=== PATIENT | female | born 1975 | race Hispanic/Latino ===

== ENCOUNTER 2020-07-22 18:53 | Observation (INO) | payer BC, SELFPAY ==
--- NOTE | ~2020-07-22 | US_ITS ---
US venous doppler [facility] DATE: 07/23/2020 10:09 INDICATION: Calf pain TECHNIQUE: Real-time and color flow imaging and Doppler analysis of the veins of the left lower extre mity COMPARISON: None FINDINGS: The left greater saphenous vein is patent. There is spontaneous and phasic flow and normal augmentation and color flow signal and normal compression of the deep veins of the left leg. IMPRESSION: No evidence of deep venous thrombosis of left lower extremity Reviewed, dictated and finalized at [facility]. Reviewed, dictated and finalized at location [facility].
--- NOTE | ~2020-07-22 | XR_ITS ---
EXAMINATION: XR chest 1V portable DATE: 07/22/2020 19:40 INDICATION: Cough TECHNIQUE: frontal view of the chest was obtained. COMPARISON: None FINDINGS: Subtle patchy opacities in the right mid to lower and left lower lung zone. No pleural effusion or pn eumothorax. The cardiomediastinal silhouette is normal. IMPRESSION: 1. Subtle opacities in the right mid to lower and left lower lung zones which could represent atelect asis, pneumonia or pulmonary edema. Reviewed, dictated and finalized at location [facility]. IMPRESSION: 1. Subtle opacities in the right mid to lower and left lower lung zones which c ould represent atelectasis, pneumonia or pulmonary edema.
[2020-07-22 18:56] VITALS: BP 135/67; PULSE 76; RESP 20; TEMP 36.8; O2SAT 97
--- NOTE | 2020-07-22 19:25 | ECG_ITS ---
Measurements Intervals [place] Rate: 73 P: 35 OR: 153 QRS: -7 QRSD: 101 T: 22 QT: 419 QTc: 463 Interpretive Statements SINUS RHYTHM BASELINE ARTIFACT- I NORMAL ECG Electronically Signed On 07-23-2020 7:18:42 CDT by Hawk Worley D.O.
--- NOTE | 2020-07-22 19:30 | ED.SOB ---
HPI - SOB/Dyspnea General Chief Complaint: Shortness of Breath/Dyspnea Stated Complaint: SOB/left leg pain Time Seen by Provider: 07/22/20 19:13 Source: RN notes reviewed History of Present Illness HPI Narrative: Patient presents to emergency department from home for dyspnea. Patient states that symptoms began today with a feeling of shortness of breath. States is associated with a nonproductive cough. Patient also states today she developed pain in her left calf she denies any swelling in the left leg she denies any fevers or chills chest pain abdominal pain nausea vomiting, loss of taste or smell or any other symptoms denies tobacco use. Patient denies any neck direct trauma or injury to the left leg. Denies any history of blood clots Related Data Home Medications Medication Instructions Recorded Confirmed methocarbamol 07/22/20 Allergies Allergy/AdvReac Type Severity Reaction Status Date / Time steroid Allergy Hives Uncoded 07/22/20 18:59 Review of Systems Review of Systems: Narrative: Gen.: Denies fevers or chills Eyes: Denies eye pain or visual change ENT: Denies congestion Respiratory: See HPI CV: Denies chest pain or palpitations GI: Denies abdominal pain nausea, emesis or diarrhea Musculoskeletal: Denies back pain reports left calf pain Neuro: Denies numbness, tingling, weakness or focal weakness Skin: Denies rash Except as documented, all other systems reviewed and negative [facility] Past Medical History Medical History (Updated 07/22/20 @ 21:22 by Kyle Garcia DO) Patient denies significant medical history Social History Social History (Updated 07/22/20 @ 19:31 by Kyle Garcia DO) Smoking status: Never smoker Gender identity (if verbalized by the patient): Female Exam Narrative: Exam Narrative: APPEARANCE: No acute distress, nontoxic, resting in bed EYES: EOMI HEENT: Normocephalic, atraumatic, OMM RESPIRATORY: No respiratory distress Clear to auscultation bilaterally with no rhonchi wheezing or rales. CARDIOVASCULAR: Regular rate and rhythm without murmurs rubs or gallops. ABDOMINAL: Soft, nontender, nondistended, no rebound or guarding MUSCULOSKELETAl: Moves all extremities. No clubbing, cyanosis or edema. Left calf is tender to palpation no swelling noted no tenderness of the left knee or ankle with full range of motion of both, dorsalis pedis pulse 2+ neurovascular intact NEURO: Awake and alert. Following commands, speech normal, no focal deficits SKIN:: Warm, dry. No rashes lesions or abrasions PSYCHIATRIC: Normal affect/mood, Course Course Emergency Course: I discussed with the patient her current blood level. She states she has been anemic before in the past she states she believes she normally runs around hemoglobin of 3 states she is never had a full work-up but has required blood transfusions I discussed need for admission with blood transfusion. Discussed with patient I would like to perform a rectal exam to rule out occult GI bleed the patient refusing at this time with charge nurse Reyes present Called discussed with Dr. Hargrove presentation work-up agrees with mission at this time. Request COVID-19 swab as well as patient be started on antibiotics until results of test are returned. We discussed that her left calf pain will order a.m. ultrasound Discussed with patient and family results of workup and diagnosis. Discussed need for admission. Patient and family understand and agree to current treatment plan Vital Signs Vital signs: Vital Signs Temperature 98.2 F 07/22/20 18:56 Pulse Rate 76 07/22/20 18:56 Respiratory Rate 20 07/22/20 18:56 Blood Pressure 135/67 07/22/20 18:56 Pulse Oximetry 97 07/22/20 18:56 Temperature 98.2 F 07/22/20 18:56 Pulse Rate 78 07/22/20 19:38 Respiratory Rate 8 L 07/22/20 19:37 Blood Pressure 130/90 07/22/20 19:37 Pulse Oximetry 98 07/22/20 19:37 MDM - SOB/Dyspnea Lab Data Result diagrams: 05
[2020-07-22 19:37] VITALS: BP 130/90; PULSE 70; RESP 8; O2SAT 98
[2020-07-22 19:38] VITALS: PULSE 78
[2020-07-22 19:54] LABS: Eosinophils Percent Auto 0.5 % (0-4.4); Hematocrit 24.8 % (37.0-47.0); Immature Platelet Fraction Pct 3.2 % (0.9-11.2); Lymphocytes Absolute Auto 1.39 K/mm3 (0.9-3.2); Lymphocytes Percent Auto 32.4 % (18.3-44.2); Mean Corpuscular Hemoglobin 14.3 pg (26-34); Mean Corpuscular Volume 57.3 fl (80-100); Mean Platelet Volume 9.1 fl (7.4-10.4); Monocytes Absolute Auto 0.5 K/mm3 (0.1-0.6); Neutrophils Absolute Auto 2.4 K/mm3 (1.3-6.7); Neutrophils Percent Auto 56.1 % (45.5-73.1); Platelet Count Result 276 k/mm3 (150-375); Red Blood Count 4.33 M/mm3 (4.2-5.4); Red Cell Distribution Width 21.5 % (11.5-14.5); White Blood Count 4.3 K/mm3 (4.5-10.0)
[2020-07-22 20:01] LABS: Hemoglobin 6.2 g/dL (12.0-15.0)
[2020-07-22 20:03] LABS: Alanine Aminotransferase 13 U/L (4-35); Albumin Level 4.2 g/dL (3.5-5.1); Alkaline Phosphatase 81 U/L (38-126); Anion Gap 6 mmol/L (8-16); Aspartate Amino Transferase 24 U/L (14-36); Bilirubin,Total 0.3 mg/dL (0.2-1.3); Blood Urea Nitrogen 10 mg/dL (7-17); Calcium 8.5 mg/dL (8.4-10.2); Carbon Dioxide 28 mmol/L (22-30); Chloride 105 mmol/L (98-107); Estimated Glomerular Filt Rate > 60; Glucose 86 mg/dL (65-105); Partial Thromboplastin Time 37.1 SECONDS (22.3-36.8); Sodium 139 mmol/L (137-145)
[2020-07-22 20:03] LABS: Hypochromasia 1+ (NORMAL); Ovalocytes 1+ (NORMAL); Platelet Estimate Adequate (Adequate); Target Cells 1+ (NORMAL)
[2020-07-22 20:14] LABS: NT Pro B Type Natriuretic Pept 219 pg/mL (5-100); Troponin I < 0.012 ng/mL (0.000-0.034)
[2020-07-22 20:17] LABS: Prothrombin Time 13.8 Seconds (11.1-14.7)
[2020-07-22 20:19] LABS: Potassium 3.2 mmol/L (3.4-5.0)
[2020-07-22 21:21] LABS: Iron 15 ug/dL (37-170)
[2020-07-22] MEDS: POTASSIUM CHLORIDE 20 MEQ TABLET 40 MEQ PO (21:26)
[2020-07-22 21:30] LABS: Percent Iron Saturation 3 % (20-50)
[2020-07-22 21:57] LABS: Ferritin 4.04 ng/mL (6.24-137)
[2020-07-22 22:22] VITALS: BP 141/78; PULSE 69; RESP 17; O2SAT 100
[2020-07-22 22:30] VITALS: BP 128/73; PULSE 70; RESP 20; TEMP 37.6; O2SAT 100; BMI 35.4
--- NOTE | 2020-07-22 22:44 | ADMGEN ---
This patient, Joan Perdomo, was admitted to 3 [facility] Surg Room 314-01. Patient/family oriented to hospital policies and general routines including ID bracelet, bed and alarms, visiting hours, pain management, procedures, bathroom and other care routines, personal items, smoking policy, room service/diet, and visiting hours. Information on how to activate the Rapid Response Team has been discussed. Patient/Family are encouraged to report perceived risks to care and to ask questions if they do not understand what they are told or what they should do.
[2020-07-23] VITALS (14 sets, daily range): BP systolic 113–149; BP diastolic 59–82; PULSE 52–98; RESP 16–20; TEMP 36.3–37.9; O2SAT 97–100
--- NOTE | 2020-07-23 | PM.IMHP ---
H&P: HPI History of Present Illness Date/Time: 07/23/20 01:00 Chief Complaint: Shortness of breath, cough, left leg pain Narrative: 44-year-old female with past medical history of gastric bypass procedure and anemia requiring prior blood transfusion in 2019 who presented to the ER with shortness of breath, nonproductive cough and left leg pain. In the ER the patient had a chest x-ray that demonstrated subtle bilateral lower lobe infiltrates. Her labs also demonstrated incidental finding of anemia with hemoglobin of 6.2. She also reported some anterior left cooper pain that started occurring today without accompanying swelling. She reports 1 day of nonproductive cough that is accompanied by difficulty catching her breath. Incidentally she also has been having some dyspnea on exertion over the last several months. She thought that this was due to her being out of shape. She has not had her labs checked in quite some time. She reports that she recently moved here from [facility]. She has had a history of prior blood transfusions per only blood transfusion was in 2018 or 2019 following her panniculectomy. She room reports that she usually tries to eat iron rich foods but has not been eating is balanced diet is she usually does. She does not take oral iron supplementation as she states that her bariatric surgeon told her to never take oral iron supplements. She is supposed to be taking a bariatric multivitamin (likely with iron) but she has not been taking her vitamin supplements recently. She is also supposed to be taking vitamin-D supplements and vitamin-C daily. She denies any hematochezia or melena. She has refused a rectal exam. She really denies ever having an EGD. She does not have symptoms of heartburn. She only rarely takes ibuprofen. She has never had a colonoscopy. She states that she has noticed over recent months that she has been having palpitations and dyspnea when climbing stairs. She denies any orthopnea. She has occasional trace lower extremity edema but is unchanged from baseline. 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 She denies any known ill contacts or COVID exposures. She denies any fevers or chills. However, just prior to her blood transfusion when she arrived on the floor she had a temperature of 100?. She denies any myalgias, loss of sense of taste or smell, nasal congestion, rhinorrhea, or odynophagia. She did notice of frontal headache earlier today that is since resolved. She reports chronic left flank/rib pain ever since she had her panniculectomy. She uses topical lidocaine and Skelaxin to treat this. She has not had a change in her pain. She used to snore quite significantly but has not done so since she had her gastric bypass. She was post have a sleep study prior to her gastric bypass procedure but never completed the polysomnogram. She used to have hypertension prior to her bypass procedure but this has since resolved. She also had pre diabetes but this has resolved. When nursing staff arrived to the patient's room the patient's had somehow made it past security and was sitting in the patient's room despite the patient being tested for COVID-19 and the hospitals visitor restriction policy. Review of Systems Review of Systems: Narrative: 12 systems were reviewed with pertinent positives and negatives per HPI. Except as documented in the HPI, all other systems were reviewed and are negative. [facility] Past Medical History Medical History (Updated 07/23/20 @ 07:33 by Belkis Hargrove DO) Anemia Surgical History Surgical History (Updated 07/23/20 @ 07:40 by Belkis Hargrove DO) History of 2 sections History of gastric bypass (~2017) Patient is highest weight was 405 lb. She lost 150 lb prior to her gastric bypass procedure. She still had the procedure in 2017 her pre operative weight was 279 lb her current weight is around 165 lb History of tubal liga
[2020-07-23] MEDS: SODIUM CHLORIDE 0.9% IV 250 ML 30 ML IV CONT (00:45)
[2020-07-23] MEDS: ACETAMINOPHEN 325 MG TABLET 650 MG PO (02:16)
[2020-07-23] MEDS: IRON SUCROSE COMPLEX 500 MG in SODIUM CHLORIDE 0.9% IV 250 ML 78.57 MG IVPB (03:29)
[2020-07-23 06:00] LABS: Basophils Percent Auto 0.2 % (0.2-1.2); Eosinophils Percent Auto 0.4 % (0-4.4); Hematocrit 26.7 % (37.0-47.0); Hemoglobin 7.3 g/dL (12.0-15.0); Immature Granulocyte Absolute 0.01 K/mm3 (0.00-0.031); Immature Granulocyte Percent A 0.2 % (0-0.5); Immature Platelet Fraction Pct 3.7 % (0.9-11.2); Lymphocytes Absolute Auto 1.76 K/mm3 (0.9-3.2); Lymphocytes Percent Auto 36.7 % (18.3-44.2); Mean Corpuscular HGB Conc 27.3 g/dl (32-36); Mean Corpuscular Hemoglobin 16.3 pg (26-34); Mean Corpuscular Volume 59.5 fl (80-100); Mean Platelet Volume 9.2 fl (7.4-10.4); Monocytes Absolute Auto 0.5 K/mm3 (0.1-0.6); Monocytes Percent Auto 11.3 % (2.6-8.5); Neutrophils Absolute Auto 2.5 K/mm3 (1.3-6.7); Neutrophils Percent Auto 51.2 % (45.5-73.1); Platelet Count Result 224 k/mm3 (150-375); Red Blood Count 4.49 M/mm3 (4.2-5.4); Red Cell Distribution Width 25.8 % (11.5-14.5); White Blood Count 4.8 K/mm3 (4.5-10.0)
[2020-07-23 06:11] LABS: Alanine Aminotransferase 12 U/L (4-35); Albumin Level 3.5 g/dL (3.5-5.1); Alkaline Phosphatase 71 U/L (38-126); Anion Gap 6 mmol/L (8-16); Aspartate Amino Transferase 23 U/L (14-36); Bilirubin,Total 0.6 mg/dL (0.2-1.3); Blood Urea Nitrogen 9 mg/dL (7-17); Carbon Dioxide 26 mmol/L (22-30); Chloride 107 mmol/L (98-107); Estimated Glomerular Filt Rate > 60; Glucose 75 mg/dL (65-105); Potassium 3.5 mmol/L (3.4-5.0); Sodium 139 mmol/L (137-145)
[2020-07-23 06:53] LABS: Hypochromasia 2+ (NORMAL); Platelet Estimate Adequate (Adequate)
[2020-07-23 06:54] LABS: Anisocytosis 2+ (NORMAL); Ovalocytes 2+ (NORMAL); Target Cells 1+ (NORMAL)
[2020-07-23] MEDS: MULTIVIT/MIN/PREN/FOL AC/IRON TABLET 1 TAB PO (08:49)
--- NOTE | 2020-07-23 10:01 | PM.IMPN ---
Progress Note: A&P Assessment and Plan (1) Iron deficiency anemia: Code(s): D50.9 - Iron deficiency anemia, unspecified <Jeanette Hewitt PA-C - Last Filed: 07/23/20 10:19> Status: Acute <Jeanette Ester JARED Hewitt - Last Filed: 07/23/20 10:19> Assessment and Plan: Patient appears to be iron deficient likely due to bariatric surgery without taking and give vitamin supplements -patient states she simply does not like taking pills and that is why she does not take it. She understands the importance of this -she denies any dark stool or heavy menstrual bleeding -await Ifob -patient will need iron supplementation and repeat CBC to ensure she is improving with oral iron. She may need infusions if she continues to be low. I will check a B12 as well -she has no further shortness of breath or dyspnea on exertion with unit of blood. I do not suspect other etiologies such as PE or heart failure at this time. <Jeanette Hewitt PA-C - Last Filed: 07/23/20 10:19> (2) Pneumonia: Qualifiers: Laterality: bilateral Lung location: lower lobe of lung Pneumonia type: due to unspecified organism Qualified Code(s): J18.9 - Pneumonia, unspecified organism <Jeanette Hewitt PA-C - Last Filed: 07/23/20 10:19> Code(s): J18.9 - Pneumonia, unspecified organism <Jeanette Hewitt PA-C - Last Filed: 07/23/20 10:19> Status: Acute <Jeanette Hewitt PA-C - Last Filed: 07/23/20 10:19> Assessment and Plan: Questionable pneumonia in the setting of significant anemia -the patient's cough has resolved -likely atelectasis but will continue antibiotics as she did have a fever of 100.3 today -COVID-19 pending -PE seems less likely; negative D-dimer, symptoms have resolved, and she is not hypoxic <Jeanette Hewitt PA-C - Last Filed: 07/23/20 10:19> (3) Suspected 2019-nCoV infection: Code(s): Z20.822 - Contact with and (suspected) exposure to COVID-19 <Jeanette Hewitt PA-C - Last Filed: 07/23/20 10:19> Status: Acute <Jeanette Hewitt PA-C - Last Filed: 07/23/20 10:19> Assessment and Plan: Await PCR <Jeanette Hewitt PA-C - Last Filed: 07/23/20 10:19> (4) Pain of left calf: Code(s): M79.662 - Pain in left lower leg <Jeanette Hewitt PA-C - Last Filed: 07/23/20 10:19> Status: Acute <Jeanette Hewitt PA-C - Last Filed: 07/23/20 10:19> Assessment and Plan: Appears muscular on exam -ultrasound has been ordered by the ER physician, will await results <Jeanette Hewitt PA-C - Last Filed: 07/23/20 10:19> Time Spent With Patient Time with patient: 25 - 35 minutes <Jeanette Hewitt PA-C - Last Filed: 07/23/20 10:19> Subjective Date/time seen: 07/23/20 10:01 <Jeanette Hewitt PA-C - Last Filed: 07/23/20 10:19> Interval history: Pt is a 44-year-old female here for shortness of breath found to be anemic as well as possible pneumonia. Patient states she is breathing much better today. Yesterday she could not take a deep breath without coughing but today she has no cough at all. She has been walking to the bathroom and back without any shortness of breath and has no lightheadedness or dizziness. For the last few months she has been feeling very tired and thought it was due to working overtime at [employer] since they are short staffed. She has had no CP with this. She does not have heavy periods or dark stool. She is feeling back to her baseline today. She has not had the covid vaccine and does not want to take it. She has had pain to her left lower anterior leg without any trauma or exercise to that area. <JARED Vargas Last Filed: 07/23/20 10:19> Review of Systems Review of Systems: All systems reviewed & are unremarkable except as noted in HPI and below <Jeanette Hewitt PA-C - Last Filed: 07/23/20 10:19> Exam Narrative: Exam Narrative: General: Wel
[2020-07-23 10:11] LABS: Hematocrit 27.4 % (37.0-47.0); Hemoglobin 7.3 g/dL (12.0-15.0)
[2020-07-23 21:08] LABS: IFOB Positive Control Positive; Immunochemical Fecal Occult Bl Negative (N)
--- NOTE | 2020-07-24 00:04 | PC.NURSE ---
MARLEN called me to let me know the patient was complaining of pain with her IV & zithromax infusion. When I got in there the patient was gripping her sheets saying she couldn't move her hand due to the pain. I assessed the IV site and she gasped and yelled about the pain.. I told her I would stop the infusion and take out the IV and offered her an ice pack which she took. I told her she only got half of her antibiotic due to me slowing down the rate and she said she does not want any more IVs because we don't know where to stick her ... at this time the patient is refusing the rest of her antibiotic as well as further IV placement. I will talk to AM nurse about switching her antibiotics to oral since we are planning on discharge anyway. -MARTHA WINTER
[2020-07-24 04:00] VITALS: BP 121/61; PULSE 60; RESP 16; TEMP 36.6; O2SAT 100
[2020-07-24 06:12] LABS: Hematocrit 27.8 % (37.0-47.0); Hemoglobin 7.2 g/dL (12.0-15.0); Mean Corpuscular HGB Conc 25.9 g/dl (32-36); Mean Corpuscular Hemoglobin 15.9 pg (26-34); Mean Corpuscular Volume 61.4 fl (80-100); Mean Platelet Volume 9.5 fl (7.4-10.4); Platelet Count Result 240 k/mm3 (150-375); Red Blood Count 4.53 M/mm3 (4.2-5.4); Red Cell Distribution Width 25.8 % (11.5-14.5); White Blood Count 4.8 K/mm3 (4.5-10.0)
[2020-07-24 06:18] LABS: Anion Gap 5 mmol/L (8-16); Blood Urea Nitrogen 10 mg/dL (7-17); Calcium 8.5 mg/dL (8.4-10.2); Carbon Dioxide 27 mmol/L (22-30); Chloride 107 mmol/L (98-107); Estimated Glomerular Filt Rate > 60; Glucose 73 mg/dL (65-105); Potassium 3.3 mmol/L (3.4-5.0); Sodium 139 mmol/L (137-145)
--- NOTE | 2020-07-24 06:36 | PC.NURSE ---
Informed Dr. Hargrove of patients refusal for IV's and antibiotics. -MARTHA RN
[2020-07-24 07:24] LABS: Folic Acid 8.8 ng/mL (2.76->20)
[2020-07-24 07:54] VITALS: BP 125/75; PULSE 61; RESP 16; TEMP 36.8; O2SAT 100
[2020-07-24] MEDS: MULTIVIT/MIN/PREN/FOL AC/IRON TABLET 1 TAB PO (08:14)
[2020-07-24] MEDS: CYANOCOBALAMIN INJ 1,000 MCG/ML VIAL 1000 MCG IM (08:14)
[2020-07-24] MEDS: POTASSIUM CHLORIDE 20 MEQ TABLET 40 MEQ PO (08:14)
[2020-07-24] MEDS: IRON SUCROSE COMPLEX 100 MG in SODIUM CHLORIDE 0.9% IV 50 ML 220 MG IVPB (10:59)
[2020-07-24 12:00] VITALS: BP 132/77; PULSE 60; RESP 16; TEMP 37.3; O2SAT 97
[2020-07-24 13:55] LABS: SARS-CoV-2 RNA PCR Positive
--- NOTE | 2020-07-24 14:20 | PM.DS ---
DS: Admitting Diagnosis Admitting Diagnosis Admitting Diagnosis: anemia DS: Discharge Diagnosis Discharge Diagnosis (1) Iron deficiency anemia: Code(s): D50.9 - Iron deficiency anemia, unspecified Status: Acute Assessment and Plan: Patient appears to be iron deficient likely due to bariatric surgery without taking and give vitamin supplements -patient states she simply does not like taking pills and that is why she does not take it. She understands the importance of this -she denies any dark stool or heavy menstrual bleeding -unable to produce a stool. -she was given iron and b12 at discharge and is to follow up with her bariatric surgeon -she has no further shortness of breath or dyspnea on exertion with unit of blood. I do not suspect other etiologies such as PE or heart failure at this time. (2) Pneumonia: Qualifiers: Pneumonia type: due to unspecified organism Laterality: bilateral Lung location: lower lobe of lung Qualified Code(s): J18.9 - Pneumonia, unspecified organism Code(s): J18.9 - Pneumonia, unspecified organism Status: Acute Assessment and Plan: due to covid, see below -PE seems less likely; negative D-dimer, symptoms have resolved, and she is not hypoxic (3) Suspected 2019-nCoV infection: Code(s): Z20.822 - Contact with and (suspected) exposure to COVID-19 Status: Acute Assessment and Plan: as below (4) Pain of left calf: Code(s): M79.662 - Pain in left lower leg Status: Acute Assessment and Plan: Appears muscular on exam -ultrasound neg for DVT (5) COVID-19 virus infection: Code(s): U07.1 - COVID-19 Status: Acute (6) Pneumonia due to COVID-19 virus: Code(s): U07.1 - COVID-19; J12.82 - Pneumonia due to coronavirus disease 2019 Status: Acute Assessment and Plan: Patient had a fever yesterday of 100.3 with an x-ray with bilateral infiltrates and a cough/shortness of breath on admission -her oxygen saturation is 97% on room air and is experiencing no further cough or SOB -She was told she had 8 days left of quarantine which initially she said she was not going to do but after further negotiation she agreed to do so -she did not want her information shared with the CDC or health department . I told her it was an automatic reportable illness to the health department and that they would likely be in touch with her. I ensured her that we would not tell any of her friends, family or employer but I explained how important quarantine is. Although she used foul language throughout our entire encounter, she agreed to stay home. -I told her to come back if she feels short of breath. She said she would rather than come back. I let her know we are here if she needs us regardless. DS: Summary Hospital Course Hospital Course: Patient is a 44-year-old female who presented emergency room on July 22, 2020 for dyspnea and cough. Initial CBC in the ER was 4.3, hemoglobin 6.2, hematocrit 24.8, platelets 276. BMP on admission showed low potassium at 3.2. Patient was found the have iron deficiency anemia as well as low B12 and admitted to the hospitalist service. She was given a unit of blood and her symptoms improved. She said that she had gastric bypass surgery in the past and has not been taking her supplements. I explained to how important this is but I do not know if she is going to take them outpatient. I also let her know that she needs follow-up with the primary care physician to get a repeat blood draw to ensure her hemoglobin improves with the iron and B12 orally. During her stay she had a slight fever with an abnormal chest x-ray and she was tested for COVID-19. Patient tested positive and was educated about the disease, quarantine, and what to come back to emergency room for. Please see above for further details. The day of discharge the patient had no symptoms of shortness of b
--- NOTE | 2020-07-24 14:54 | PC.NURSE ---
Pt has been agitated during every interaction. She has been wanting to leave and stating that her will be doing something to get in trouble if she does not get out of her soon. When I went to discharge patient, she was very angry. She wanted me to explain how we thought she could be short of breath due to her anemia and then claim that she also has covid. She believes we made that result up because it took so long for her to find out and that she wears my mask all the way until I get home, which is what the [facility] department says to do so there is no way that I could have covid . Tried to educate the patient again on covid and its transmission and isolation need. Pt refused education. Continued to go through discharge packet to obtain pt signature. When I got to the phone number to our floor, pt states that she would rather rot and than stay with you again . I reiterated to pt to please consider quarantining per CDC protocol. Pt rolled her eyes and ignored me.
--- NOTE | 2020-07-31 14:08 | PC.NURSE ---
Blood cx are negative.
== END 2020-07-24 15:00 | disposition home or self-care (01) ==
LOC: ANHED 21:22 → ANH3MEDSUR 22:00
PROVIDERS: Physician Assistant; Admitting Provider Internal Medicine; Emergency Provider Emergency Medicine; Visit Provider Internal Medicine
DX: U07.1 COVID-19 (principal); J12.82 Pneumonia due to coronavirus disease 2019; D50.9 Iron deficiency anemia, unspecified; Z98.84 Bariatric surgery status; M79.662 Pain in left lower leg
CPT/HCPCS: 36415; 36430; 71045; 80048; 80053; 82274; 82607; 82728; 82746; 83540; 83550; 83605; 83880; 84484; 85014; 85018; 85025; 85027; 85055; 85380; 85610; 85730; 86850; 86900; 86901; 86923; 87040; 93005; 93971; 96365; 96366; 96367; 96372; 96376; 99285; A9270; C9803; G0378; J0456; J0696; J1756; J3420; J7050; P9016; U0003; U0005

== ENCOUNTER 2020-09-15 18:48 | Emergency (ER) | payer BC, SELFPAY ==
--- NOTE | ~2020-09-15 | CT_ITS ---
EXAMINATION: CT abdomen pelvis wo con DATE: 09/15/2020 21:39 INDICATION: Left flank pain. Nausea. TECHNIQUE: Computed tomography (CT) of the abdomen and pelvis was performed without intravenous contr ast. Automated exposure control and iterative reconstruction technique were employed. The dose-length product was 218.83 mGy-cm. COMPARISON: None. FINDINGS: The visualized portions of the lung bases demonstrate minimal atelectasis. No pleural effus ion. The heart size is normal. No pericardial effusion. There is a 12 mm mass in the outer left breas t. The liver and spleen are normal. There are changes of cholecystectomy. The pancreas, adrenal gland s, and right kidney are normal. There is mild left hydronephrosis and hydroureter. There is a [address] one in distal left ureter. There are no dilated loops of bowel. The appendix is normal. There are no pathologically enlarged lymph nodes. There is no free intraperitoneal fluid. There are bilateral tuba l ligation clips. There is a thick-walled subcutaneous fluid collection in the low anterior abdominal wall measuring 7.4 x 0.5 x 2.1 cm. There are surgical changes in the stomach. There is mild thoracol umbar spondylosis. IMPRESSION: 1. 6 mm stone in distal left ureter with mild left hydronephrosis and hydroureter. 2. 12 mm left breast mass. Ultrasound is recommended. 3. Small, thick-walled subcutaneous fluid collection in the low anterior abdominal wall, likely from prior surgery. This finding may be a seroma, chronic hematoma, or abscess. Reviewed, dictated and finalized at location A. IMPRESSION: 1. 6 mm stone in distal left ureter with mild left hydronephrosis and hydrouret er. 2. 12 mm left breast mass. Ultrasound is recommended. 3. Small, thick-walled subcutaneous fluid collection in the low anterior abdomi nal wall, likely from prior surgery. This finding may be a seroma, chronic constance tanya, or abscess.
[2020-09-15 20:03] VITALS: BP 175/88; PULSE 80; RESP 17; TEMP 37.1; O2SAT 100
[2020-09-15 20:19] LABS: Basophils Percent Auto 0.3 % (0.2-1.2); Eosinophils Absolute Auto 0.2 K/mm3 (0-0.3); Eosinophils Percent Auto 1.5 % (0-4.4); Immature Granulocyte Absolute 0.02 K/mm3 (0.00-0.031); Immature Granulocyte Percent A 0.2 % (0-0.5); Lymphocytes Absolute Auto 1.78 K/mm3 (0.9-3.2); Lymphocytes Percent Auto 14.7 % (18.3-44.2); Mean Corpuscular HGB Conc 30.2 g/dl (32-36); Mean Corpuscular Hemoglobin 23.9 pg (26-34); Mean Corpuscular Volume 79.2 fl (80-100); Mean Platelet Volume 8.9 fl (7.4-10.4); Monocytes Absolute Auto 1.4 K/mm3 (0.1-0.6); Monocytes Percent Auto 11.2 % (2.6-8.5); Neutrophils Absolute Auto 8.7 K/mm3 (1.3-6.7); Neutrophils Percent Auto 72.1 % (45.5-73.1); Platelet Count Result 167 k/mm3 (150-375); Red Blood Count 5.43 M/mm3 (4.2-5.4); White Blood Count 12.1 K/mm3 (4.5-10.0)
[2020-09-15 20:28] LABS: Anion Gap 10 mmol/L (8-16); Blood Urea Nitrogen 16 mg/dL (7-17); Calcium 9.5 mg/dL (8.4-10.2); Carbon Dioxide 27 mmol/L (22-30); Chloride 103 mmol/L (98-107); Estimated Glomerular Filt Rate > 60; Glucose 90 mg/dL (65-105); Potassium 3.7 mmol/L (3.4-5.0); Sodium 140 mmol/L (137-145)
[2020-09-15 20:37] LABS: Add Urine Microscopic? YES; Appearance Urine Clear (Clear); Bilirubin Urine Negative (Negative); Blood Urine 2+ (Negative); Color Urine Yellow (Yellow); Glucose Urine UA Negative (Negative); Ketones Urine Negative (Negative); Leukocyte Esterase Ur 1+ LEU/UL (Negative); Mucus Urine Rare /lpf; Nitrate Urine Negative (Negative); Protein Urine 2+ mg/dL (Negative); RBC Urine >75 /hpf (0-2); Specific Grav Ur 1.017 (1.001-1.035); Squamous Epithelial Cell Urine Occasional /hpf (Few); Urobilinogen Urine Negative mg/dL (<2.0)
[2020-09-15 20:41] LABS: Hypochromasia 1+ (NORMAL); Platelet Estimate Adequate (Adequate)
[2020-09-15 20:42] LABS: Anisocytosis 2+ (NORMAL)
--- NOTE | 2020-09-15 21:17 | ED.ABDPAIN ---
HPI - Abdominal Pain General Chief Complaint: Abdominal Pain Stated Complaint: back pain Time Seen by Provider: 09/15/20 21:16 History of Present Illness HPI narrative: Left flank pain intermittently for up to one month. Significantly worse in the past 3 days. Feels sharp. No radiation. worse with urination. Associated with urinary urgency. No dysuria, hematuria, fever. She has had a kidney stone in the past, but says she does not remember what it felt like. Related Data Home Medications Medication Instructions Recorded Confirmed methocarbamol 500 mg BYMOUTH DAILY PRN 07/22/20 07/22/20 Allergies Allergy/AdvReac Type Severity Reaction Status Date / Time steroid Allergy Hives Uncoded 09/15/20 21:47 Review of Systems Review of Systems: All systems reviewed & are unremarkable except as noted in HPI and below Constitutional: Constitutional: Denies fever(s) ENT: Reports system reviewed and no additional complaints, except as documented Cardiovascular: Cardiovascular: Denies chest pain Respiratory: Respiratory: Denies dyspnea Genitourinary: Genitourinary: Reports as per HPI Neurologic: Reports system reviewed and no additional complaints, except as documented [facility] Past Medical History Medical History Anemia Surgical History Surgical History History of 2 sections History of gastric bypass (~2017) Patient is highest weight was 405 lb. She lost 150 lb prior to her gastric bypass procedure. She still had the procedure in 2017 her pre operative weight was 279 lb her current weight is around 165 lb History of tubal ligation Hx of cholecystectomy Status post panniculectomy (~2018) With prolonged intraoperative. In blood loss requiring blood transfusion Family History Family History Father Heart attack Diabetes mellitus Grandparent Heart attack Sibling Diabetes mellitus Social History Social History Social History: She recently moved to the area from [facility]. She does not yet have a primary care physician in the area. She lives with her of almost 2 years. She has 2 adult sons. She is a former smoker. She smoked 1.5 packs of cigarettes per day for approximately 15 years. 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 Smoking status: Former smoker Tobacco type: cigarettes Alcohol intake: current Substance use: never Gender identity (if verbalized by the patient): Female Spiritual care concerns: No Exam Const: General: healthy appearing, no acute distress and alert Orientation/consciousness: patient oriented x3 HENMT: Head: normal to inspection Neck: Neck: normal visual inspection Chest: Chest palpation & inspection: no tenderness Resp: Effort & Inspection: normal respiratory effort Auscultation: clear to auscultation bilaterally, no rales, no rhonchi and no wheezes Cardio: Jugular venous distension: no JVD Rate: regular rate Rhythm: regular rhythm Heart sounds: no murmurs GI: Inspection: non-distended GI Palp: Yes Soft to palpation and No Tenderness to palpation present (GI) : General: Yes no CVA tenderness Skin: General skin exam: normal color Neuro: General: patient oriented x3 and moves all extremities Speech: normal speech Extrem: General: no edema Psych: Appearance: well kempt Affect: normal affect Course Vital Signs Vital signs: Vital Signs Temperature 37.1 C 09/15/20 20:03 Pulse Rate 80 09/15/20 20:03 Respiratory Rate 17 09/15/20 20:03 Blood Pressure 175/88 H 09/15/20 20:03 Pulse Oximetry 100 09/15/20 20:03 Temperature 37.1 C 09/15/20 20:03 Pulse Rate 65 09/15/20 23:54 Respiratory Rate 18 09/15/20 23:54 Blood Pressure 122/71 09/15/20 23:54 Pulse Oxime
[2020-09-15 21:42] VITALS: BP 154/79; PULSE 70; RESP 18; O2SAT 100
[2020-09-15] MEDS: fentaNYL CITRATE INJ (*CRX) 100 MCG/2 ML VIAL 50 MCG IV PUSH (21:57)
[2020-09-15] MEDS: SODIUM CHLORIDE 0.9% IV 1,000 ML 999 ML IV CONT (22:44)
[2020-09-15] MEDS: TAMSULOSIN HCL 0.4 MG CAPSULE PO (22:44)
[2020-09-15] MEDS: KETOROLAC 30 MG/ML VIAL (*BKC) IV PUSH (22:44)
[2020-09-15 22:47] VITALS: BP 139/70; PULSE 84; RESP 16; O2SAT 100
[2020-09-15 23:54] VITALS: BP 122/71; PULSE 65; RESP 18; O2SAT 99
== END 2020-09-16 00:11 | disposition home or self-care (01) ==
PROVIDERS: Emergency Medicine; Emergency Provider Emergency Medicine
DX: N13.2 Hydronephrosis with renal and ureteral calculous obstruction (principal); N63.20 Unspecified lump in the left breast, unspecified quadrant; Z86.2 Personal history of diseases of the blood and blood-forming organs and certain disorders involving the immune mechanism; Z98.84 Bariatric surgery status; Z87.891 Personal history of nicotine dependence; R93.5 Abnormal findings on diagnostic imaging of other abdominal regions, including retroperitoneum
CPT/HCPCS: 36415; 74176; 80048; 81001; 85025; 96361; 96374; 96375; 99284; A9270; J1885; J3010; J7030

== ENCOUNTER 2022-01-22 22:49 | Emergency (ER) | payer OTHER, SELFPAY ==
--- NOTE | ~2022-01-22 | CT_ITS ---
EXAMINATION: CT abdomen pelvis wo con DATE: 01/23/2022 00:54 INDICATION: Right flank pain. TECHNIQUE: Computed tomography (CT) of the abdomen and pelvis was performed without intravenous contr ast. Automated exposure control and iterative reconstruction technique were employed. The dose-length product was 1210.49 mGy-cm. COMPARISON: CT abdomen and pelvis 09/15/2020 FINDINGS: The visualized portions of the lung bases demonstrate mild atelectasis. No pleural effusion . The heart size is normal. No pericardial effusion. The liver and spleen are normal. There are pereira es of cholecystectomy. There are surgical changes in the stomach. The pancreas, adrenal glands, and l eft kidney are normal. There is mild right hydronephrosis and hydroureter. There is a 3 mm stone in d istal right ureter. There are bilateral tubal ligation clips. There are no dilated loops of bowel. Th e appendix is normal. There are no pathologically enlarged lymph nodes. There is no free intraperiton eal fluid. In the lower anterior abdominal subcutaneous fat, there is a 7.3 x 0.4 x 2.6 cm chronic th ick-walled fluid collection, likely a seroma. There is mild thoracal lumbar spondylosis. IMPRESSION: 1. 3 mm stone in distal right ureter with mild right hydronephrosis and hydroureter. 2. Chronic small thick-walled subcutaneous fluid collection in low anterior abdominal wall, likely a seroma or chronic hematoma. Reviewed, dictated and finalized at location A. IMPRESSION: 1. 3 mm stone in distal right ureter with mild right hydronephrosis and hydrour eter. 2. Chronic small thick-walled subcutaneous fluid collection in low anterior abd ominal wall, likely a seroma or chronic hematoma.
[2022-01-22 23:06] VITALS: BP 171/88; PULSE 70; RESP 18; TEMP 36.6; O2SAT 100
[2022-01-23 00:24] LABS: Basophils Absolute Auto 0.1 K/mm3 (0.0-0.1); Basophils Percent Auto 0.5 % (0.2-1.2); Eosinophils Absolute Auto 0.2 K/mm3 (0-0.3); Eosinophils Percent Auto 2.3 % (0-4.4); Hematocrit 41.8 % (37.0-47.0); Hemoglobin 12.8 g/dL (12.0-15.0); Immature Granulocyte Absolute 0.02 K/mm3 (0.00-0.031); Immature Granulocyte Percent A 0.2 % (0-0.5); Lymphocytes Absolute Auto 2.03 K/mm3 (0.9-3.2); Lymphocytes Percent Auto 20.9 % (18.3-44.2); Mean Corpuscular HGB Conc 30.6 g/dl (32-36); Mean Corpuscular Hemoglobin 24.8 pg (26-34); Mean Corpuscular Volume 80.9 fl (80-100); Mean Platelet Volume 9.8 fl (7.4-10.4); Monocytes Percent Auto 10.3 % (2.6-8.5); Neutrophils Absolute Auto 6.4 K/mm3 (1.3-6.7); Neutrophils Percent Auto 65.8 % (45.5-73.1); Platelet Count Result 202 k/mm3 (150-375); Red Blood Count 5.17 M/mm3 (4.2-5.4); Red Cell Distribution Width 16.1 % (11.5-14.5); White Blood Count 9.7 K/mm3 (4.5-10.0)
[2022-01-23] MEDS: ONDANSETRON INJ 4 MG/2 ML VIAL IV PUSH (00:25)
[2022-01-23] MEDS: KETOROLAC 30 MG/ML VIAL (*BKC) IV PUSH (00:25)
[2022-01-23] MEDS: SODIUM CHLORIDE 0.9% IV 1,000 ML 999 ML IV CONT ×2 (00:25→02:32)
[2022-01-23 00:34] LABS: Alanine Aminotransferase 23 U/L (6-35); Albumin Level 4.4 g/dL (3.5-5.1); Alkaline Phosphatase 75 U/L (38-126); Anion Gap 11 mmol/L (8-16); Aspartate Amino Transferase 29 U/L (14-36); Bilirubin,Total 0.2 mg/dL (0.2-1.3); Blood Urea Nitrogen 18 mg/dL (7-17); Calcium 8.9 mg/dL (8.4-10.2); Carbon Dioxide 28 mmol/L (22-30); Chloride 98 mmol/L (98-107); Estimated Glomerular Filt Rate > 60; Glucose 99 mg/dL (65-110); Potassium 3.4 mmol/L (3.4-5.0); Sodium 137 mmol/L (137-145)
[2022-01-23 00:40] LABS: Appearance Urine Slightly Cloudy (Clear); Bilirubin Urine Negative (Negative); Blood Urine 2+ (Negative); Color Urine Yellow (Yellow); Glucose Urine UA Negative (Negative); Ketones Urine Negative (Negative); Leukocyte Esterase Ur Negative LEU/UL (Negative); Nitrate Urine Negative (Negative); Protein Urine Negative (Negative); Urobilinogen Urine 0.2 mg/dL (<2.0)
[2022-01-23 00:44] LABS: Bacteria Urine Trace /hpf; Mucus Urine Rare /lpf; Squamous Epithelial Cell Urine Many /hpf (Few); WBC Urine 0-3 /hpf
[2022-01-23 00:45] LABS: Add Urine Microscopic? YES
[2022-01-23] MEDS: MORPHINE SULFATE (*CRX) 4 MG/ML INJ IV PUSH (02:32)
[2022-01-23 02:34] VITALS: BP 163/81; PULSE 75; RESP 18; O2SAT 99
--- NOTE | 2022-01-23 03:04 | ED.ABDPAIN ---
HPI - Abdominal Pain General Chief Complaint: Abdominal Pain Stated Complaint: rt flank pain Time Seen by Provider: 01/22/22 23:44 History of Present Illness HPI narrative: Patient is a 46-year-old female who presents ER with sudden onset right-sided flank pain. Began a couple hours prior to arrival. No fevers or chills or sweats. Patient actively vomiting. Has history of kidney stones. Patient endorses urinary frequency and urgency. No dysuria or hematuria. No alleviating factors at home. Related Data Allergies Allergy/AdvReac Type Severity Reaction Status Date / Time paroxetine AdvReac Mild Sweating Verified 11/22/21 13:34 steroid Allergy Hives Uncoded 11/22/21 13:34 Review of Systems Review of Systems: All systems reviewed & are unremarkable except as noted in HPI and below Constitutional: Constitutional: Denies chills and Denies fever(s) Cardiovascular: Cardiovascular: Denies chest pain and Denies rapid heart rate Respiratory: Respiratory: Denies cough and Denies dyspnea Gastrointestinal: Gastrointestinal: Reports abdominal pain, Denies diarrhea, Reports nausea and Reports vomiting Genitourinary: Genitourinary: Denies hematuria, Reports nocturia, Denies dysuria and Reports flank pain Musculoskeletal: Musculoskeletal: Reports back pain Integumentary/Breasts: Skin/Breast: Denies erythema and Denies rash PMFSH Past Medical History Medical History Anemia Anxiety Chronic back pain Depression with anxiety Psoriasis Surgical History Surgical History H/O gastric bypass (~2016) History of 2 sections History of abdominoplasty 2018 History of gastric bypass (~2017) Patient is highest weight was 405 lb. She lost 150 lb prior to her gastric bypass procedure. She still had the procedure in 2017 her pre operative weight was 279 lb her current weight is around 165 lb History of tubal ligation 1995 History of tubal ligation Hx of cholecystectomy (~2014) Hx of cholecystectomy Status post panniculectomy (~2017) With prolonged intraoperative. In blood loss requiring blood transfusion Family History Family History Father Alcoholism Diabetes mellitus Depression Anxiety Mother Alcoholism Diabetes mellitus Hypertension Heart problem Cerebrovascular accident Sibling Alcoholism Diabetes mellitus Hypertension Depression Anxiety Heart problem Father Heart attack Diabetes mellitus Grandparent Heart attack Sibling Diabetes mellitus Social History Social History Social History: She recently moved to the area from [facility]. She does not yet have a primary care physician in the area. She lives with her of almost 2 years. She has 2 adult sons. She is a former smoker. She smoked 1.5 packs of cigarettes per day for approximately 15 years. 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 Smoking status: Former smoker Tobacco type: cigarettes Alcohol intake: current Alcohol use details: She drinks 1 alcoholic beverage a month. 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 HEAD: Normocephalic, atraumatic. ENT: Mucous membranes moist. NECK: Supple. CHEST: Clear to auscultation. No respiratory distress. HEART: Regular rate and rhythm. Normal peripheral pulses. ABDOMEN: Soft, nontender, nondistended. EXTREMITIES: Normal range of motion. No edema. SKIN: Warm, dry, no rash. NEURO: Alert and oriented x3. Course Course Emergency Course: Patient's pain improved. Will rose mary
[2022-01-23 03:33] VITALS: BP 160/82; PULSE 78; RESP 18; O2SAT 99
== END 2022-01-23 03:24 | disposition home or self-care (01) ==
PROVIDERS: Emergency Provider Emergency Medicine; PCP Family Medicine
DX: N13.2 Hydronephrosis with renal and ureteral calculous obstruction (principal); Z86.2 Personal history of diseases of the blood and blood-forming organs and certain disorders involving the immune mechanism; Z98.84 Bariatric surgery status; Z87.891 Personal history of nicotine dependence
CPT/HCPCS: 36415; 74176; 80053; 81001; 81025; 85025; 96361; 96374; 96375; 99284; J1885; J2270; J2405; J7030

== ENCOUNTER → 2022-08-05 12:05 | Outpatient (CLI) | payer OTHER, SELFPAY ==
--- NOTE | ~2022-08-05 | XR_ITS ---
Lumbosacral Spine: AP and lateral views Clinical History: Pain Findings: The normal lordotic curve is maintained. The vertebral bodies and posterior elements are i ntact. The intervertebral disc spaces are preserved. The sacroiliac joints are normally outlined. Impression: No significant abnormality. Reviewed, dictated and finalized at [facility]. Impression: No significant abnormality.
--- NOTE | ~2022-08-05 | XR_ITS ---
Thoracic spine: Clinical Indication: Back pain AP and lateral views were performed. No fracture is seen. There is normal alignment of the vertebrae. The intervertebral disc spaces appe ar normal. Paravertebral soft tissues appear normal. Impression: No significant abnormalities noted. Reviewed, dictated and finalized at [facility]. Impression: No significant abnormalities noted.
== END ==
PROVIDERS: PCP Nurse Practitioner Family; Visit Provider Nurse Practitioner Family
DX: M54.9 Dorsalgia, unspecified (principal)
CPT/HCPCS: 72070; 72100

== ENCOUNTER 2023-05-12 10:00 | Outpatient (CLI) | payer OTHER, SELFPAY ==
[2023-05-12 13:03] LABS: Basophils Percent Auto 0.5 % (0.2-1.2); Eosinophils Absolute Auto 0.1 K/mm3 (0-0.3); Eosinophils Percent Auto 1.7 % (0-4.4); Hematocrit 41.4 % (37.0-47.0); Hemoglobin 12.9 g/dL (12.0-15.0); Immature Granulocyte Absolute 0.02 K/mm3 (0.00-0.031); Immature Granulocyte Percent A 0.3 % (0-0.5); Lymphocytes Absolute Auto 1.98 K/mm3 (0.9-3.2); Lymphocytes Percent Auto 32.8 % (18.3-44.2); Mean Corpuscular HGB Conc 31.2 g/dl (32-36); Mean Corpuscular Hemoglobin 25.8 pg (26-34); Mean Corpuscular Volume 82.8 fl (80-100); Mean Platelet Volume 10.2 fl (7.4-10.4); Monocytes Absolute Auto 0.6 K/mm3 (0.1-0.6); Monocytes Percent Auto 10.1 % (2.6-8.5); Neutrophils Absolute Auto 3.3 K/mm3 (1.3-6.7); Neutrophils Percent Auto 54.6 % (45.5-73.1); Platelet Count Result 244 k/mm3 (150-375); Red Cell Distribution Width 14.6 % (11.5-14.5)
[2023-05-12 13:32] LABS: Alanine Aminotransferase 19 U/L (6-35); Albumin Level 4.3 g/dL (3.5-5.1); Alkaline Phosphatase 85 U/L (38-126); Anion Gap 6 mmol/L (8-16); Aspartate Amino Transferase 45 U/L (14-36); Bilirubin,Total 0.6 mg/dL (0.2-1.3); Blood Urea Nitrogen 14 mg/dL (7-17); Calcium 9.3 mg/dL (8.4-10.2); Carbon Dioxide 30 mmol/L (22-30); Chloride 104 mmol/L (98-107); Cholesterol 182 mg/dL (0-200); Estimated Glomerular Filt Rate > 60; Glucose 89 mg/dL (65-110); HDL Direct 84 mg/dL; Potassium 3.8 mmol/L (3.4-5.0); Sodium 140 mmol/L (137-145); Triglycerides 80 mg/dL (<150)
[2023-05-12 13:43] LABS: LDL Cholesterol Direct 77 mg/dL
[2023-05-12 14:02] LABS: Thyroid Stimulating Hormone 0.699 uIU/mL (0.465-4.680)
[2023-05-15 23:55] LABS: Vitamin D 1,25 (OH)2 Total 77 pg/mL (18-72); Vitamin D2 1,25 (OH)2 <8 pg/mL; Vitamin D3 1,25 (OH)2 77 pg/mL
== END 2023-05-12 10:01 | disposition home or self-care (01) ==
LOC: ANHGOSHLAB 10:02
PROVIDERS: PCP Family Medicine; Visit Provider Nurse Practitioner Family
DX: Z00.00 Encounter for general adult medical examination without abnormal findings (principal); E55.9 Vitamin D deficiency, unspecified; D50.9 Iron deficiency anemia, unspecified
CPT/HCPCS: 36415; 80053; 80061; 82652; 84443; 85025

== ENCOUNTER 2023-08-08 11:25 | Emergency (ER) | payer OTHER, SELFPAY ==
--- NOTE | ~2023-08-08 | CT_ITS ---
Clinical Indication: Injury, pain CT Scan of the Chest, Abdomen, and Pelvis with Contrast: Technique: Contiguous sections were acquired throughout the chest, abdomen, and pelvis after intraven ous administration of 100 cc of Omnipaque 350. Dose reduction technique was used on this scan by samm reardon automated exposure control and iterative reconstruction technique. The dose-length product (DL P) was 1630.92 mGy-cm. COMPARISON: 01/23/2022 Findings: There is no evidence of any significant mediastinal, hilar or axillary lymphadenopathy. The mediastin al soft tissues appear normal. There is no evidence of pleural or pericardial effusion. 4 mm left lower lobe pulmonary nodule present (axial image 59), unchanged. No pneumothorax. No other pulmonary consolidation. No rib fracture seen. Diffuse hepatic steatosis noted. Cholecystectomy clips are present. The spleen, pancreas, adrenals an d kidneys are within normal limits. No evidence of aortic aneurysm. No lymphadenopathy. No bowel obstruction or bowel wall thickening. There is evidence of prior gastric bypass surgery. The re is no evidence to suggest acute appendicitis. Urinary bladder is unremarkable. No pelvic mass seen. No ascites. Impression: No acute, posttraumatic abnormality seen. 4 mm left lower lobe pulmonary nodule, unchanged. Diffuse hepatic steatosis. Reviewed, dictated and finalized at location . Impression: No acute, posttraumatic abnormality seen. 4 mm left lower lobe pulmonary nodule, unchanged. Diffuse hepatic steatosis.
[2023-08-08 11:32] VITALS: BP 146/87; PULSE 68; RESP 18; TEMP 36.4; O2SAT 99
--- NOTE | 2023-08-08 11:47 | PC.NURSE ---
Pt states chronic back pain, is treated by physician. Last night had son walk on her back. Son is 250 pound, pt states she moved and heard a pop. Since then back pain is worse, left rib cage pain that she rates 9. Resp reg & unlabored
--- NOTE | 2023-08-08 12:08 | ED.BACK ---
HPI - Back Pain/Injury General Chief Complaint: Back Pain/Injury Stated Complaint: back pain Time Seen by Provider: 08/08/23 12:07 Source: patient Related Data Allergies Allergy/AdvReac Type Severity Reaction Status Date / Time paroxetine AdvReac Mild Sweating Verified 08/08/23 11:29 steroid Allergy Hives Uncoded 08/08/23 12:39 PMF Past Medical History Medical History Anemia Anxiety Chronic back pain Depression with anxiety Psoriasis Surgical History Surgical History H/O gastric bypass (~2016) History of 2 sections History of abdominoplasty 2018 History of gastric bypass (~2016) Patient is highest weight was 405 lb. She lost 150 lb prior to her gastric bypass procedure. She still had the procedure in 2017 her pre operative weight was 279 lb her current weight is around 165 lb History of tubal ligation 1995 History of tubal ligation Hx of cholecystectomy (~2014) Hx of cholecystectomy Status post panniculectomy (~2017) With prolonged intraoperative. In blood loss requiring blood transfusion Family History Family History Father Alcoholism Diabetes mellitus Depression Anxiety Mother Alcoholism Diabetes mellitus Hypertension Heart problem Cerebrovascular accident Sibling Alcoholism Diabetes mellitus Hypertension Depression Anxiety Heart problem Father Heart attack Diabetes mellitus Grandparent Heart attack Sibling Diabetes mellitus Social History Social History Social History: She recently moved to the area from [facility]. She does not yet have a primary care physician in the area. She lives with her of almost 2 years. She has 2 adult sons. She is a former smoker. She smoked 1.5 packs of cigarettes per day for approximately 15 years. 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 Smoking status: Former smoker Tobacco type: cigarettes Alcohol intake: current Alcohol use details: She drinks 1 alcoholic beverage a month. 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[employer] Gender identity (if verbalized by the patient): Female Spiritual care concerns: No Agree to blood products: Yes Course Vital Signs Vital signs: Vital Signs Temperature 36.4 C L 08/08/23 11:32 Pulse Rate 68 08/08/23 11:32 Respiratory Rate 18 08/08/23 11:32 Blood Pressure 146/87 H 08/08/23 11:32 Pulse Oximetry 99 08/08/23 11:32 Temperature 36.7 C 08/08/23 15:30 Pulse Rate 87 08/08/23 15:30 Respiratory Rate 18 08/08/23 15:30 Blood Pressure 135/88 08/08/23 15:30 Pulse Oximetry 100 08/08/23 15:30 MDM - Back Pain/Injury MDM Narrative Medical decision making narrative: PATIENT PRESENTS WITH BACK PAIN AFTER 260 LB SON IS STOOD ON HER BACK. PATIENT IS COMPLAINING OF LEFT LOWER RIBS PAIN ANTERIORLY PHYSICAL EXAMINATION CONSISTENT WITH TENDERNESS AT THE LEFT LOWER RIBS, DIFFERENTIAL DIAGNOSIS INCLUDE SPLENIC INJURY, FRACTURE RIBS, MUSCULOSKELETAL. WORKUP TODAY INCLUDING CT SCAN OF THE CHEST, ABDOMEN AND PELVIS WITH IV CONTRAST SHOWED NO RIB FRACTURE, NO SPLENIC INJURY OR ANY OTHER INJURIES. PATIENT CANNOT TAKE NARCOTICS FOR PAIN. PATIENT RECEIVED 1 L OF NORMAL SALINE IV, WILL BE DISCHARGED ON DICLOFENAC +MORE BRAZIL. CONTINUE GABAPENTIN AND MUSCLE RELAXANT AT HOME. Differential Diag
[2023-08-08] MEDS: SODIUM CHLORIDE 0.9% IV 1,000 ML 999 ML IV CONT (13:07)
[2023-08-08 13:16] LABS: Basophils Percent Auto 0.4 % (0.2-1.2); Eosinophils Absolute Auto 0.1 K/mm3 (0-0.3); Eosinophils Percent Auto 1.7 % (0-4.4); Hematocrit 40.5 % (37.0-47.0); Hemoglobin 12.7 g/dL (12.0-15.0); Immature Granulocyte Absolute 0.02 K/mm3 (0.00-0.031); Immature Granulocyte Percent A 0.3 % (0-0.5); Lymphocytes Absolute Auto 1.77 K/mm3 (0.9-3.2); Lymphocytes Percent Auto 22.9 % (18.3-44.2); Mean Corpuscular HGB Conc 31.4 g/dl (32-36); Mean Corpuscular Hemoglobin 25.8 pg (26-34); Mean Corpuscular Volume 82.3 fl (80-100); Monocytes Absolute Auto 0.7 K/mm3 (0.1-0.6); Monocytes Percent Auto 9.1 % (2.6-8.5); Neutrophils Absolute Auto 5.1 K/mm3 (1.3-6.7); Neutrophils Percent Auto 65.6 % (45.5-73.1); Platelet Count Result 245 k/mm3 (150-375); Red Blood Count 4.92 M/mm3 (4.2-5.4); Red Cell Distribution Width 13.8 % (11.5-14.5); White Blood Count 7.7 K/mm3 (4.5-10.0)
[2023-08-08 13:17] LABS: Appearance Urine Clear (Clear); Bilirubin Urine Negative (Negative); Blood Urine Negative (Negative); Color Urine Yellow (Yellow); Glucose Urine UA Negative (Negative); Ketones Urine Negative (Negative); Leukocyte Esterase Ur Negative LEU/UL (Negative); Nitrate Urine Negative (Negative); Protein Urine Negative (Negative); Specific Grav Ur 1.015 (1.001-1.035); pH Urine 7.5 (5.0-9.0)
[2023-08-08 13:28] LABS: Add Urine Microscopic? NO
[2023-08-08 13:45] LABS: Alanine Aminotransferase 22 U/L (6-35); Albumin Level 4.7 g/dL (3.5-5.1); Alkaline Phosphatase 90 U/L (38-126); Anion Gap 7 mmol/L (4-12); Aspartate Amino Transferase 32 U/L (14-36); Bilirubin,Total 0.6 mg/dL (0.2-1.3); Blood Urea Nitrogen 13 mg/dL (7-17); Calcium 8.9 mg/dL (8.4-10.2); Carbon Dioxide 25 mmol/L (22-30); Chloride 105 mmol/L (98-107); Estimated Glomerular Filt Rate > 60; Glucose 90 mg/dL (65-110); Potassium 4.2 mmol/L (3.4-5.0); Sodium 137 mmol/L (137-145)
[2023-08-08 15:30] VITALS: BP 135/88; PULSE 87; RESP 18; TEMP 36.7; O2SAT 100
== END 2023-08-08 17:09 | disposition home or self-care (01) ==
PROVIDERS: Emergency Provider Emergency Medicine; PCP Family Medicine
DX: M54.50 Low back pain, unspecified (principal); L40.9 Psoriasis, unspecified; Z98.84 Bariatric surgery status; Z86.2 Personal history of diseases of the blood and blood-forming organs and certain disorders involving the immune mechanism; Z90.49 Acquired absence of other specified parts of digestive tract; R91.1 Solitary pulmonary nodule; K76.0 Fatty (change of) liver, not elsewhere classified
CPT/HCPCS: 36415; 71260; 74177; 80053; 81003; 85025; 96360; 99284; J7030; Q9967